=== PATIENT | male | born 1945 | race Caucasian/White ===

== ENCOUNTER 2023-06-13 10:09 | Emergency (ER) | payer OTHER, MEDICARE, SELFPAY ==
[2023-06-13 10:10] VITALS: BP 126/69; PULSE 77; RESP 20; TEMP 36.6; O2SAT 95; BMI 20.9
--- NOTE | 2023-06-13 10:45 | RAD_ITS ---
HISTORY: SOB. TECHNIQUE: XR Chest 2 Views. COMPARISON: None. FINDINGS: CARDIOMEDIASTINAL BORDERS: Cardiac silhouette within normal limits in size. Mediastinal contour unremarkable with mild calcification of the aortic knob. LUNGS: Radiographically clear. Mild hyperinflation suggesting COPD. PLEURA: No pleural effusion or pneumothorax seen. OSSEOUS STRUCTURES: Mild scoliosis and degenerative change. RAD/Chest PA and Lateral IMPRESSION: No acute cardiopulmonary process identified. Electronically Signed: Brooke Galeano MD at 11:03 EDT ,
[2023-06-13 10:57] LABS: Absolute Lymphocyte Count 1.33 X10^3/uL (0.83-4.51); Absolute Neutrophil Count 4.9 X10^3/uL (2.0-7.7); Basophil# 0.11 X10^3/uL; Basophil% 1.3 % (0-1); Eosinophil# 1.48 X10^3/uL; Eosinophils% 17.2 % (0-5); Hematocrit 47.8 % (40-54); Hemoglobin 15.5 g/dL (13.0-16.5); Lymphocyte # 1.33 X10^3/ul (0.83-4.51); Lymphocyte % 15.5 % (19-41); Mean Corp Hgb Conc 32.4 g/dL (32-36); Mean Corpuscular Hgb 31.6 pg (27.0-32.0); Mean Corpuscular Volume 97.6 fL (80-94); Mean Platelet Vol. 9.9 fl (6.2-12.0); Monocyte# 0.68 X10^3/uL; Monocyte% 7.9 % (0-10); NRBC Flagged by Analyzer 0 % (0-5); Neutrophil # 4.94 X10^3/uL (2.7-7.7); Neutrophil % 57.4 % (47-70); Platelet Count 190 K/mm3 (150-450); RBC Distribution Width CV 13.2 % (11.6-14.6); RBC Distribution Width SD 47.8 fl (35.1-43.9); White Blood Count 8.6 K/mm3 (4.4-11.0)
[2023-06-13 11:04] VITALS: O2SAT 95
[2023-06-13 11:11] LABS: Anion Gap 4 (5-15); BUN 17 mg/dL (7-18); BUN/Creat Ratio 16.8 RATIO (10-20); Calcium,Total 8.8 mg/dL (8.5-10.1); Chloride 107 mmol/L (98-107); Creatinine, Serum 1.01 mg/dL (0.70-1.30); EST Glomerular Filtration Rate 76 mL/min (>60); Est Glom Filt Rate - Afr Amer 92 mL/min (>60); Estimated Creatinine Clearance 54.92 ml/min; Glucose 132 mg/dL (74-106); Potassium 4.2 mmol/L (3.5-5.1); Sodium Level 139 mmol/L (136-145)
--- NOTE | 2023-06-13 11:58 | ED.VIS.DYS ---
HPI History of Present Illness Chief Complaint: Shortness of Breath Informant: patient and spouse/S.O. Narrative Narrative: 78-year-old male visiting [place] from [place] presenting to the emergency room with dyspnea. Patient has a history of COPD. He states that he has a nebulizer machine at home but did not bring him with him on this trip. Beginning yesterday he has felt more short of breath. He is almost out of his albuterol and he is out of his Spiriva. He states that this is not atypical for his COPD flares. He denies any chest pain. No fevers. [facility] Medical History (Updated 06/13/23 @ 12:[address] London Moreno, DO) COPD (chronic obstructive pulmonary disease) Home Medications albuterol sulfate 90 mcg/actuation aerosol inhaler (Ventolin HFA) 2 puff inhalation Q4H PRN PRN Wheezing ##1 06/13/23 [Rx Last Taken Unknown] tiotropium bromide 2.5 mcg/actuation mist for inhalation (Spiriva Respimat) 2 inh inhalation DAILY #4 grams 06/13/23 [Rx Last Taken Unknown] Allergy/AdvReac Type Severity Reaction Status Date / Time No Known Allergies Allergy Verified 06/13/23 10:12 Social History Smoking Status: Never smoker EXAM Physical Exam Const Vital Signs: 06/13/23 10:10 06/13/23 11:04 Temperature 97.8 F Temperature Source Temporal Pulse Rate 77 Respiratory Rate 20 H Respiratory Effort Short of Breath Respiratory Depth Shallow Blood Pressure 126/69 H Blood Pressure Mean 88 Pulse Ox 95 Oxygen Delivery Method Room Air Room Air Positive well nourished and well developed General Appearance ED: well developed HEENT Reports normocephalic, head/scalp atraumatic and moist mucous membranes Eyes PERRL and EOMs intact bilaterally Neck no lymphadenopathy, supple and no JVD Resp Resp Narrative: Patient is tachypneic with inspiratory and expiratory wheezes bilaterally. Mild to moderate conversational dyspnea Cardio regular rate, regular rhythm and no murmurs GI normal to inspection, nondistended, normoactive bowel sounds and non-tender Palpation: soft Back/Spine no CVA tenderness and normal ROM Extremity normal to inspection General Extremety ED: Negative for edema General Extremity: Negative for edema Neuro oriented x3 and CN's II-XII intact bilaterally Sensorium / Orientation: alert Motor Exam: strength 5/5 throughout Psych mental status grossly normal Mood & Affect: Negative for depressed or tearful Skin no rashes or lesions noted and no wounds MDM MDM MDM Narrative Medical decision making narrative: White count 8.6. I do not believe he has pneumonia (normal white count no fever) he has equal breath sounds bilaterally. No chest pain so I do not think that this is ACS or PE. Patient received breathing treatments as well as prednisone. I am going to write for him to have albuterol and Spiriva as well as burst of prednisone. Lab Data Attestation: I reviewed the patient's lab results. Labs: Laboratory Results - last 24 hr 06/13/23 10:44 WBC 8.6 RBC 4.90 Hgb 15.5 Hct 47.8 MCV 97.6 H MCH 31.6 MCHC 32.4 RDW Std Deviation 47.8 H RDW Coeff of Danae 13.2 Plt Count 190 MPV 9.9 Immature Gran % (Auto) 0.700 Neut % (Auto) 57.4 Lymph % (Auto) 15.5 L [place] % (Auto) 7.9 Eos % (Auto) 17.2 H Baso % (Auto) 1.3 H Absolute Neuts (auto) 4.9 Absolute Lymphs (auto) 1.33 Nucleated RBC % 0 Sodium 139 Potassium 4.2 Chloride 107 Carbon Dioxide 28.0 Anion Gap 4 L BUN 17 Creatinine 1.01 Estim Creat Clear Calc 54.92 Est GFR (MDRD) Af Amer 92 Est GFR (MDRD) Non-Af 76 BUN/Creatinine Ratio 16.8 Glucose 132 H Calcium 8.8 Radiography Diagnostic Testing: Clinical Impression(s) from Imaging Studies Chest X-Ray 06/13/23 10:45 IMPRESSION: No acute cardiopulmonary process identified. Electronically Signed: Brooke Galeano MD at 11:03 EDT , Differential Diagnosis Chest pain/SOB: pulmonary embolism, ACS, pneumothorax, pneumonia, aortic dissection and CHF Discharge Plan Triage Chief Complaint: Shortness of Breath ED Provider: London Moreno Dx/Rx/DC Orders Clinical Impression: Encounter for medication refill, Acute dyspnea, COPD exacerbation Instructions: ED COPD Flare Prescriptions: New albuterol sulfate [Ventolin HFA] 90 mcg/actuation HFA aerosol inhaler 2 puff inhalation Q4H PRN PRN (Reason: Wheezing) Qty: 1 0RF Spiriva Respimat 2.5 mcg/actuation mist 2 inh inhalation DAILY Qty: 4 0RF Primary Care Provider: [facility] Doctor,Out of Referrals: [facility] Doctor,Out of [Primary Care Provider] - As Needed Disposition Disposition: Home, Self Care
[2023-06-13] MEDS: Ipratropium/Albuterol Sulfate 3 ML AMPUL.NEB INHALATION (12:05)
[2023-06-13 12:07] VITALS: PULSE 72; RESP 16
[2023-06-13] MEDS: Albuterol 2.5 MG/3 ML VIAL.NEB. INHALATION ×3 (12:27)
[2023-06-13 12:28] VITALS: PULSE 72; RESP 18
== END 2023-06-13 13:03 | disposition home or self-care (01) ==
PROVIDERS: Emergency Provider Emergency Medicine; Visit Provider Emergency Medicine
DX: J44.1 Chronic obstructive pulmonary disease with (acute) exacerbation (principal); Z76.0 Encounter for issue of repeat prescription
CPT/HCPCS: 71046; 80048; 85025; 94640; 99283